=== PATIENT | female | born 1985 | race Caucasian/White ===

== ENCOUNTER 2016-10-29 14:21 | Emergency (ER) | payer BC ==
[2016-10-29 14:46] VITALS: BP 119/70
--- NOTE | 2016-10-29 15:19 | UC ---
Skin Complaint HPI - HPI Summary HPI Summary: stepped on the prongs of a tub drain last night-removed intact from bottom of left foot - History of Current Complaint Chief Complaint: UCLowerExtremity Time Seen by Provider: 10/29/16 14:54 Stated Complaint: PUNCTURE WOUND TO FOOT Hx Obtained From: Patient Hx Last Menstrual Period: Currently menstruating ?: No Onset/Duration: Sudden Onset, Lasting Days - 1, Worse Since - pain and swelling- hurts to ambulate Skin Exposure Onset/Duration: Days Ago - 1 Onset Severity: Mild Current Severity: Moderate Pain Intensity: 7 Pain Scale Used: 0-10 Numeric Location: Discrete - bottom of left foot Aggravating: Other - weight bearing Alleviating: Nothing Associated Signs & Symptoms: Positive: Bruising Related History: Trauma - Allergy/Home Medications Allergies/Adverse Reactions: Allergies Allergy/AdvReac Type Severity Reaction Status Date / Time No Known Allergies Allergy Verified 10/29/16 14:46 Home Medications: Home Medications Nuvaring 10/29/16 [History] Review of Systems Constitutional: Negative Skin: Bruising - bottom of left foot Eyes: Negative ENT: Negative Respiratory: Negative Cardiovascular: Negative Gastrointestinal: Negative Genitourinary: Negative Motor: Negative Neurovascular: Negative Musculoskeletal: Myalgia - bottom of left foot Neurological: Negative Psychological: Negative All Other Systems Reviewed And Are Negative: Yes PMH/Surg Hx/FS Hx/Imm Hx Previously Healthy: Yes Endocrine History Of: Denies: Diabetes, Thyroid Disease Cardiovascular History Of: Denies: Cardiac Disorders, Hypertension Respiratory History Of: Denies: COPD, Asthma GI/ History Of: Denies: Ulcer - Surgical History Surgical History: Yes Surgery Procedure, Year, and Place: Wisdomo teeth - Family History Known Family History: Positive: None - Social History 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 Lives: With Family Alcohol Use: Weekly Substance Use Type: None Smoking Status (MU): Never Smoked Tobacco - Immunization History Most Recent Tetanus Shot: 3 yeaars ago Vaccination Up to Date: Yes Physical Exam Triage Information Reviewed: Yes Appearance: Well-Appearing, No Pain Distress, Well-Nourished Vital Signs: Initial Vital Signs Temp 98.3 F 10/29/16 14:39 Pulse 70 10/29/16 14:39 Resp 18 10/29/16 14:39 BP 119/70 10/29/16 14:39 Pulse Ox 99 10/29/16 14:39 Vital Signs Reviewed: Yes Eye Exam: Normal Eyes: Positive: Conjunctiva Clear ENT Exam: Normal ENT: Positive: Normal ENT inspection, Hearing grossly normal. Negative: Nasal congestion, Nasal drainage, Trismus, Muffled/hoarse voice Neck exam: Normal Neck: Positive: Supple, Nontender, No Lymphadenopathy Respiratory Exam: Normal Respiratory: Positive: Chest non-tender, No respiratory distress, No accessory muscle use Cardiovascular Exam: Normal Cardiovascular: Positive: RRR, Pulses Normal, Brisk Capillary Refill Musculoskeletal Exam: Other Musculoskeletal: Positive: Strength Intact, ROM Intact, Edema @ - bottom of left foot Neurological Exam: Normal Neurological: Positive: Alert, Muscle Tone Normal Psychological Exam: Normal Skin: Positive: breakdown - 3 pw to left foot Course/Dx - Course Course Of Treatment: weightbearing as tolerated, warm soaks , dressing, wound care - Differential Diagnoses - Skin Complaint Differential Diagnoses: Cellulitis, Foreign Body, Local Allergic Reaction - Diagnoses Provider Diagnoses: 3 punture wounds to left foot Discharge - Discharge Plan Condition: Stable Disposition: HOME Prescriptions: Cephalexin CAP* [Keflex CAP*] 500 mg PO QID #20 cap Patient Education Materials: Foot Contusion (ED), Puncture Wound (ED), Crutch Instructions (ED) Referrals: No Primary Care Phys,NOPCP [Primary Care Provider] - [facility] [place] [facility]IAN REFERRAL [Outside] - If Needed Additional Instructions: 1. soak foot 2-3 times a day for 20 minutes in warm soapy water 2. keep dressing and clean sock on foot when in shoe 3.may leave dressing off overnight
== END 2016-10-29 15:30 | disposition home or self-care (01) ==
LOC: UCEAST 14:21
DX: S91.332A Puncture wound without foreign body, left foot, initial encounter (principal); W22.8XXA Striking against or struck by other objects, initial encounter; Y93.9 Activity, unspecified; Y92.9 Unspecified place or not applicable
CPT/HCPCS: 99213; G0463

== ENCOUNTER 2017-11-09 13:20 | Inpatient (IN) | payer BC, OTHER ==
[2017-11-09 13:47] LABS: ABS Basophils 0.1 10^3/ul (0-0.2); ABS Eosinophils 0 10^3/ul (0-0.6); ABS Lymphocytes 1.8 10^3/ul (1.0-4.8); ABS Monocytes 0.4 10^3/ul (0-0.8); ABS Neutrophils 4.2 10^3/ul (1.5-7.7); ABS Nucleated RBC 0 10^3/ul; Eosinophil % 0.2 % (0-6); Hematocrit 39 % (35-47); Hemoglobin 13.6 g/dl (12.0-16.0); Lymphocyte % 28.5 % (25-47); Mean Corpuscular HGB Conc 35 g/dl (31-36); Mean Corpuscular Hemoglobin 31 pg (27-31); Mean Corpuscular Volume 89 fL (80-97); Mean Platelet Volume 9 um3 (7.4-10.4); Nucleated Red Blood Cells % 0.1; Platelet Count 299 10^3/ul (150-450); Red Blood Count 4.38 10^6/ul (4.0-5.4); Red Cell Distribution Width 12 % (10.5-15); White Blood Count 6.5 10^3/ul (3.5-10.8)
[2017-11-09 14:12] LABS: EGFR Non-African American 97.3 (>60)
[2017-11-09 14:21] LABS: Urine Appearance Clear; Urine Blood Negative (Negative); Urine Color Straw; Urine Ketones Negative (Negative); Urine Protein Negative (Negative); Urine Specific Gravity 1.005 (1.010-1.030); Urine Urobilinogen Negative (Negative)
[2017-11-09] MEDS ORDERED: Ibuprofen TAB* 800 MG PO ONE (17:17)
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
[2017-11-09] MEDS ORDERED: Al Hydrox/Mg Hydrox/Simet LIQ* 30 ML UDC PO PRN (22:05)
[2017-11-09] MEDS: DULoxetine DR CAP* 20 MG CAP.DR PO SCH ×2 (22:20→23:45)
[2017-11-09] MEDS: Acetaminophen TAB* 325 MG PO PRN (23:45)
[2017-11-10] MEDS: Vitamin THERAPEUTIC TAB PO SCH (09:21)
[2017-11-10] MEDS: Acetaminophen TAB* 325 MG PO PRN (09:24)
[2017-11-10] MEDS: cloNIDine TAB* 0.1 MG PO SCH ×2 (12:35→21:14)
[2017-11-10] MEDS ORDERED: LORazepam TAB(*) 1 MG PO ONE (19:13)
[2017-11-10] MEDS ORDERED: Temazepam CAP* 15 MG PO PRN (19:18)
[2017-11-10] MEDS ORDERED: Nicotine GUM* 2 MG PO PRN (19:19)
[2017-11-10] MEDS ORDERED: LORazepam TAB(*) 1 MG PO PRN (19:19)
[2017-11-10] MEDS ORDERED: Nicotine Inhaler* 10 MG AMP INH PRN (19:20)
[2017-11-10] MEDS ORDERED: Mouth Piece, Nicotine* 1 EACH CARTRIDGE INH ONE (19:20)
[2017-11-10] MEDS ORDERED: QUEtiapine TAB* 25 MG PO SCH (21:00)
[2017-11-10] MEDS: DULoxetine DR CAP* 20 MG CAP.DR PO SCH (21:14)
[2017-11-11 08:30] VITALS: BP 105/72
[2017-11-11] MEDS: Vitamin THERAPEUTIC TAB PO SCH (09:44)
[2017-11-11] MEDS: cloNIDine TAB* 0.1 MG PO SCH (09:45)
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
== END 2017-11-11 14:35 | disposition home or self-care (01) | DRG 755 ==
LOC: ED 13:20 → BSU 20:02
PROVIDERS: ADMIT Psychiatry & Neurology Psychiatry; ATTEND Psychiatry & Neurology Psychiatry
DX: F43.10 Post-traumatic stress disorder, unspecified (principal); R45.851 Suicidal ideations; F32.9 Major depressive disorder, single episode, unspecified; F60.3 Borderline personality disorder
CPT/HCPCS: 36415; 80053; 80061; 80307; 80320; 80329; 81003; 83036; 84443; 85025; 99238; 99283; A9270-GY; G0480

== ENCOUNTER 2018-01-20 19:36 | Emergency (ER) | payer BC, OTHER ==
[2018-01-20 19:53] VITALS: BP 122/82
[2018-01-20] MEDS ORDERED: Ibuprofen TAB* 600 MG PO ONE (20:30)
--- NOTE | 2018-01-20 21:39 | UC ---
Luis Bautista Rebecca, scribed for Adrián Nj MD on 01/20/18 at 2028 . Respiratory Complaint HPI - HPI Summary HPI Summary: Pt is a 32 y/o F who presents to [facility] c/o feeling ill for multiple days. Pt reports that on Thursday (4 days ago) she began having a "tickle in my throat" then on Thursday her throat began to hurt. Thursday (2 days ago) is when her symptoms became worse and she began experiencing rhinorrhea, YOUNG, "burning" eyes , stabbing pleuritic CP, nonproductive cough, fatigue, myalgias, subjective fever and chills. YOUNG is currently moderate, ranked 5/10. Reports she has been resting which has not improved symptoms. 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 Denies abdominal pain. Negative PMHx Mononucleosis. - History of Current Complaint Chief Complaint: UCRespiratory Stated Complaint: COUGH,FLU-LIKE SYMPTOMS Time Seen by Provider: 01/20/18 20:23 Hx Obtained From: Patient Hx Last Menstrual Period: [id number] Onset/Duration: Still Present, Worse Since - 2 days ago Severity Currently: Moderate Pain Intensity: 5 Pain Scale Used: 0-10 Numeric Character: Cough: Nonproductive Aggravating Factors: Nothing Alleviating Factors: Nothing Associated Signs And Symptoms: Positive: Fever, Chills, Pleuritic Chest Pain - Allergies/Home Medications Allergies/Adverse Reactions: Allergies Allergy/AdvReac Type Severity Reaction Status Date / Time No Known Allergies Allergy Verified 01/20/18 19:53 Home Medications: Home Medications DULoxetine CAP* [Cymbalta CAP*] 60 mg PO BEDTIME 01/20/18 [History Confirmed 01/20/18] PMH/Surg Hx/FS Hx/Imm Hx - Additional Past Medical History Additional PMH: NEGATIVE PMHx: Mononucleosis, HTN, DM Psychological History: Post Traumatic Stress Disorder - Surgical History Surgical History: Yes Surgery Procedure, Year, and Place: [place] teeth - Family History Known Family History: Negative: Cardiac Disease, Hypertension, Diabetes - Social History Alcohol Use: Weekly Alcohol Amount: binge drinking Substance Use Type: None Smoking Status (MU): Never Smoked Tobacco Have You Smoked in the Last Year: No - Immunization History Most Recent Tetanus Shot: 3 yeaars ago Vaccination Up to Date: Yes Review of Systems Constitutional: Fever, Chills, Fatigue Skin: Negative Eyes: Other - Burning eye pain ENT: Sore Throat, Nasal Discharge, Other - "tickle in throat" Respiratory: Cough Cardiovascular: Chest Pain - pleuritic Gastrointestinal: Negative Genitourinary: Negative Motor: Negative Neurovascular: Negative Musculoskeletal: Myalgia Neurological: Headache Psychological: Negative All Other Systems Reviewed And Are Negative: Yes - Comments Additional Review of Systems Comments: NEGATIVE: Abdominal pain Physical Exam - Summary Physical Exam Summary: General: mildly ill-appearing, no pain distress Skin: warm, color reflects adequate perfusion, dry Head: normal Eyes: EOMI, NANCY ENT: positive rhinorrhea, posterior pharynx is erythematous, positive cervical lymphadenopathy Neck: supple, nontender Respiratory: CTA, breath sounds present Cardiovascular: RRR Abdomen: soft, nontender Bowel: present Musculoskeletal: normal, strength/ROM intact Neurological: sensory/motor intact, A&O x3 Psychological: affect/mood appropriate Triage Information Reviewed: Yes Vital Signs: Initial Vital Signs Temp 98.9 F 01/20/18 19:47 Pulse 90 01/20/18 19:47 Resp 16 01/20/18 19:47 BP 122/82 01/20/18 19:47 Pulse Ox 100 01/20/18 19:47 Vital Signs Reviewed: Yes UC Diagnostic Evaluation - Laboratory O2 Sat by Pulse Oximetry: 100 Re-Evaluation - Re-Evaluation First Eval Re-Evaluation Time: 21:28 Comment: Discussed results with the pt. Respiratory Course/Dx - Course Course Of Treatment: WITH SX BEING APPROX 7 DAYS DURATION DISCUSSED SX TREATMENT AND USE OF ABX. AT THIS TIME, SX TREATMENT. ABX RX SENT TO BE FILLED IF SX CONTINUE FOR A TOTAL OF 10 DAYS. - Differential Dx/Diagnosis Provider Diagnoses: SINUSITIS Discharge - Sign-Out/Discharge Documenting (check all that apply): Discharge/Admit/Transfer - Discharge - Discharge Plan Condition: Stable Disposition: HOME Prescriptions: Amoxicillin/Clavulanate TAB* [Augmentin TAB 875*] 875 mg PO BID #20 tab Patient Education Materials: Sinusitis (ED) Forms: *Work Release Referrals: Kell Kirby MD [Primary Care Provider] - - Billing Disposition and Condition Condition: STABLE Disposition: HOME The documentation as recorded by the Luis carroll Rebecca accurately reflects the service I personally performed and the decisions made by me, Adrián Nj MD.
== END 2018-01-20 21:35 | disposition home or self-care (01) ==
LOC: UCEAST 19:36
DX: J32.9 Chronic sinusitis, unspecified (principal)
CPT/HCPCS: 87502; 87651; 99212; A9270-GY; G0463

== ENCOUNTER 2018-11-21 11:24 | Emergency (ER) | payer OTHER ==
--- NOTE | 2018-11-21 11:32 | ED ---
Psychiatric Complaint - HPI Summary HPI Summary: A 32 y/o F brought in by police and ambulance presents to ED for MHE due to erratic behavior [employer] approx 1030. Per EMS: When EMS arrived on scene, police were present, and patient was in her driveway agitated and uncooperative. She had thrown things, removed her jewelry and some clothes. She calmed down en route to ED. She denies alcohol but had smoked marijuana. Patient was upset because "her left her today" for a job interview in [place]. She is concerned about the safety of her Great Nasim. Medications reviewed. She states her healed scars on her UE are from self-injury (george) and the healing bruises on UE are from her dog. - History Of Current Complaint Hx Obtained From: Patient, EMS Hx Last Menstrual Period: 12/23/17 ?: No - denies at bedside Onset/Duration: Still Present Timing: Constant Severity Initially: Severe Severity Currently: Mild Aggravating Factor(s): Recent Stress, Drug Use - marijuana Related History: Positive For: Prior Psychiatric Issues - Allergies/Home Medications Allergies/Adverse Reactions: Allergies Allergy/AdvReac Type Severity Reaction Status Date / Time No Known Allergies Allergy Verified 01/20/18 19:53 Home Medications: Home Medications ALPRAZolam TAB* [Xanax TAB*] 0.25 mg PO SEE INSTRUCTIONS PRN 11/21/18 [History Confirmed 11/21/18] Pnv No.95/Ferrous Fum/Folic AC [ Caplet] 1 each PO DAILY 11/21/18 [ History Confirmed 11/21/18] traZODone TAB* [Desyrel TAB*] 50 mg PO BEDTIME 11/21/18 [History Confirmed 11/21] PMH/Surg Hx/FS Hx/Imm Hx Previously Healthy: No Endocrine/Hematology History: Denies: Hx Diabetes, Hx Thyroid Disease Cardiovascular History: Denies: Hx Hypertension Respiratory History: Denies: Hx Asthma, Hx Chronic Obstructive Pulmonary Disease (COPD) GI History: Denies: Hx Ulcer Psychiatric History: Reports: Hx Eating Disorder - anorexia, Hx Depression, Hx Suicide Attempt, Hx of Violent Episodes Against Others, Hx Substance Abuse, Other Psychiatric Issues/Disorders - borderline personality disorder - Surgical History Surgery Procedure, Year, and Place: [place] teeth Infectious Disease History: Denies: Hx Hepatitis, Hx Human Immunodeficiency Virus (HIV), History Other Infectious Disease - Family History Known Family History: Negative: Cardiac Disease, Hypertension, Diabetes - Social History Occupation: Employed Full-time Lives: With Family Alcohol Use: Weekly Alcohol Amount: binge drinking Hx Substance Use: No Substance Use Type: Reports: None Hx Tobacco Use: No Smoking Status (MU): Never Smoked Tobacco Have You Smoked in the Last Year: No Review of Systems Negative: Cough Positive: Bruising - UE Psychological: Other - pos: manic, erratic behavior All Other Systems Reviewed And Are Negative: Yes Physical Exam - Summary Physical Exam Summary: Appearance: The patient is well-nourished in no acute distress and in no acute pain. Skin: The skin is warm and dry and skin color reflects adequate perfusion. There are healed scars on bilateral UE. There are healing bruises on bilateral forearms. HEENT: The head is normocephalic and atraumatic. The pupils are equal and reactive. The conjunctivae are clear and without drainage. Nares are patent and without drainage. Mouth reveals moist mucous membranes and the throat is without erythema and exudate. The external ears are intact. The ear canals are patent and without drainage. The tympanic membranes are intact. Neck: the neck is supple with full range of motion and non-tender. There are no carotid bruits. There is no neck vein distension. Respiratory: Chest is non-tender. Lungs are clear to auscultation and breath sounds are symmetrical and equal. Cardiovascular: Heart is regular rate and rhythm. There is no murmur or rub auscultated. There is no peripheral edema and pulses are symmetrical and equal. Abdomen: The abdomen is soft and non-tender. There are normal bowel sounds heard in all four quadrants and there is no organomegaly palpated. Musculoskeletal: There is no back tenderness noted. Extremities are non-tender with full range of motion. There is good capillary refill. There is no peripheral edema or calf tenderness elicited. Neurological: Patient is alert and oriented to person, place and time. The patient has symmetrical motor strength in all four extremities. Cranial nerves are grossly intact. Deep tendon reflexes are symmetrical and equal in all four extremities. Psychiatric: Manic, some pressure speech, circumferential speech pattern. Triage Information Reviewed: Yes Vital Signs Reviewed: Yes Diagnostics - Laboratory Result Diagrams: 11/21/18 12:00 11/21/18 12:00 Lab Statement: Any lab studies that have been ordered have been reviewed, and results considered in the medical decision making process. Course/Dx - Course Course Of Treatment: Patient is medically cleared for MHE at 1330. Per horse show judge: Dr. Delarosa, psych, approves patient for discharge tonight. Dx: Substance use disorder. - Differential Dx/Clinical Impression Provider Diagnosis: Substance use disorder Discharge - Sign-Out/Discharge Documenting (check all that apply): Patient Departure - DC Patient Received Moderate/Deep Sedation with Procedure: No - Discharge Plan Condition: Stable Disposition: HOME Patient Education Materials: Depression (ED), Suicide Prevention (ED) Referrals: [facility] [Outside] (Follow up as soon as possible) Kell Kirby MD [Primary Care Provider] - - Billing Disposition and Condition Condition: STABLE Disposition: Home - Attestation Statements Document Initiated by Scribe: Yes Documenting Scribe: Bon Pelayo Provider For Whom Scribe is Documenting (Include Credential): Dr. Guero Cantu MD Scribe Attestation: Bon Bautista, scribed for Dr. Guero Cantu MD on 11/21/18 at 2143. Scribe Documentation Reviewed: Yes Provider Attestation: The documentation as recorded by the Bon carroll accurately reflects the service I personally performed and the decisions made by , Dr. Guero Cantu MD Status of Scribe Document: Viewed
[2018-11-21] MEDS ORDERED: LORazepam TAB(*) 1 MG PO PRN (11:46)
[2018-11-21] MEDS ORDERED: Nicotine Inhaler* 10 MG AMP INH PRN (11:46)
[2018-11-21 12:13] LABS: ABS Basophils 0 10^3/ul (0-0.2); ABS Eosinophils 0 10^3/ul (0-0.6); ABS Lymphocytes 0.9 10^3/ul (1.0-4.8); ABS Monocytes 0.3 10^3/ul (0-0.8); ABS Neutrophils 3.9 10^3/ul (1.5-7.7); ABS Nucleated RBC 0 10^3/ul; Eosinophil % 0.1 %; Hematocrit 34 % (33-41); Lymphocyte % 17.9 %; Mean Corpuscular HGB Conc 35 g/dL (31-36); Mean Corpuscular Hemoglobin 31 pg (27-31); Mean Corpuscular Volume 90 fL (80-97); Mean Platelet Volume 8.9 fL (7.4-10.4); Nucleated Red Blood Cells % 0.1; Platelet Count 272 10^3/uL (150-450); Red Blood Count 3.83 10^6 /uL (3.70-4.87); Red Cell Distribution Width 12 % (10.5-15); White Blood Count 5.1 10^3/uL (3.5-10.8)
[2018-11-21 12:32] LABS: ALT 29 U/L (7-52); AST 31 U/L (13-39); Albumin 5.2 g/dL (3.2-5.2); Albumin/Globulin Ratio 2.3 (1-3); Alkaline Phosphatase 55 U/L (34-104); Anion Gap 7 mmol/L (2-11); BUN/Creatinine Ratio 7.2 (8-20); Blood Urea Nitrogen 5 mg/dL (6-24); CO2 Carbon Dioxide 26 mmol/L (22-32); Calcium 9.9 mg/dL (8.6-10.3); Chloride 99 mmol/L (101-111); EGFR African American 120.9 (>60); EGFR Non-African American 99.9 (>60); Globulin 2.3 g/dL (2-4); Glucose 148 mg/dL (70-100); Potassium 3.4 mmol/L (3.5-5.0); Sodium 132 mmol/L (135-145); Total Protein 7.5 g/dL (6.4-8.9)
[2018-11-21 12:39] LABS: HCG Pregnancy < 0.60 mIU/mL
[2018-11-21 12:55] LABS: Urine Appearance Clear; Urine Bilirubin Negative (Negative); Urine Blood Negative (Negative); Urine Color Colorless; Urine Glucose Negative (Negative); Urine Ketones Negative (Negative); Urine Nitrite Negative (Negative); Urine Protein Negative (Negative); Urine Specific Gravity 1.001 (1.010-1.030); Urine Urobilinogen Negative (Negative)
[2018-11-21 12:56] LABS: Barbiturates Urine Screen None Detected (None Detect); Benzodiazepine Urine Screen None Detected (None Detect); Urine Cannabinoids Screen Presumptive Positive (None Detect)
[2018-11-21 13:01] LABS: Acetaminophen < 15 mcg/mL; Alcohol < 10 mg/dL (<10); Salicylate < 2.50 mg/dL (<30)
[2018-11-21 13:17] LABS: TSH (Thyroid Stimulating Horm) 0.46 mcIU/mL (0.34-5.60)
[2018-11-21 22:28] VITALS: BP 120/93
[2018-11-22] MEDS ORDERED: LORazepam INJ* 2 MG/ML 1 ML VIAL ONE (00:18)
== END 2018-11-21 22:27 | disposition home or self-care (01) ==
LOC: ED 11:24
DX: F19.10 Other psychoactive substance abuse, uncomplicated (principal); F32.9 Major depressive disorder, single episode, unspecified
CPT/HCPCS: 36415; 80053; 80307; 80320; 80329; 81003; 84443; 84702; 85025; 99285; A9270-GY; G0480; J2060

== ENCOUNTER 2018-11-21 23:06 | Inpatient (IN) | payer OTHER ==
--- NOTE | 2018-11-21 23:48 | ED ---
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 The patient rates the pain 0/10 in severity. Symptoms aggravated by nothing. Symptoms alleviated by nothing. Patient was discharged a few minutes prior to her arrival. Patient states she is running away from her , and she wants to be arrested. Patient states she does not understand what her psychiatric diagnosis is. - History Of Current Complaint Chief Complaint: EDPsychosocial Time Seen by Provider: 11/21/18 23:25 Hx Last Menstrual Period: 12/23/17 ?: No Onset/Duration: Sudden Onset, Lasting Hours, Still Present Timing: Constant Severity Initially: Mild Severity Currently: Mild Aggravating Factor(s): Nothing Alleviating Factor(s): Nothing Associated Signs And Symptoms: Positive: Confused - Allergies/Home Medications Allergies/Adverse Reactions: Allergies Allergy/AdvReac Type Severity Reaction Status Date / Time No Known Allergies Allergy Verified 11/21/18 23:21 PMH/Surg Hx/FS Hx/Imm Hx Previously Healthy: No Endocrine/Hematology History: Denies: Hx Diabetes, Hx Thyroid Disease Cardiovascular History: Denies: Hx Hypertension Respiratory History: Denies: Hx Asthma, Hx Chronic Obstructive Pulmonary Disease (COPD) GI History: Denies: Hx Ulcer Psychiatric History: Reports: Hx Eating Disorder - anorexia, Hx Depression, Hx Suicide Attempt, Hx of Violent Episodes Against Others, Hx Substance Abuse, Other Psychiatric Issues/Disorders - borderline personality disorder - Surgical History Surgery Procedure, Year, and Place: [place] teeth Infectious Disease History: No Infectious Disease History: Denies: Hx Hepatitis, Hx Human Immunodeficiency Virus (HIV), History Other Infectious Disease, Traveled Outside the [place] in Last 30 Days - Family History Known Family History: Negative: Cardiac Disease, Hypertension, Diabetes - Social History Occupation: Employed Full-time Lives: With Family Alcohol Use: Weekly Alcohol Amount: binge drinking Hx Substance Use: No Substance Use Type: Reports: None Hx Tobacco Use: No Smoking Status (MU): Never Smoked Tobacco Have You Smoked in the Last Year: No Review of Systems Negative: Chest Pain Psychological: Other - Positive unknown type of psychiatric issue All Other Systems Reviewed And Are Negative: Yes Physical Exam - Summary Physical Exam Summary: VITAL SIGNS: Reviewed. GENERAL: Patient is a well-developed and nourished female who is lying comfortable in the stretcher. Patient is not in any acute respiratory distress. HEAD AND FACE: No signs of trauma. No ecchymosis, hematomas or skull depressions. No sinus tenderness. EYES: PERRLA, EOMI x 2, No injected conjunctiva, no nystagmus. EARS: Hearing grossly intact. Ear canals and tympanic membranes are within normal limits. MOUTH: Oropharynx within normal limits. NECK: Supple, trachea is midline, no adenopathy, no JVD, no carotid bruit, no c- spine tenderness, neck with full ROM. CHEST: Symmetric, no tenderness at palpation LUNGS: Clear to auscultation bilaterally. No wheezing or crackles. CVS: Regular rate and rhythm, S1 and S2 present, no murmurs or gallops appreciated. ABDOMEN: Soft, non-tender. No signs of distention. No rebound no guarding, and no masses palpated. Bowel sounds are normal. EXTREMITIES: FROM in all major joints, no edema, no cyanosis or clubbing. NEURO: Alert and oriented x 3. No acute neurological deficits. Speech is normal and follows commands. SKIN: Dry and warm. Patient has old self harm wounds on her upper arms. PSYCH: Patient is compulsive, however she is cooperative. Triage Information Reviewed: Yes Vital Signs On Initial Exam: Initial Vitals Temp Pulse Resp BP Pulse Ox 99.2 F 79 15 112/80 98 11/21/18 23:16 11/21/18 23:16 11/21/18 23:16 11/21/18 23:16 11/21/18 23:16 Vital Signs Reviewed: Yes Diagnostics - Vital Signs Vital Signs Temp Pulse Resp BP Pulse Ox 11/21/18 23:16 99.2 F 79 15 112/80 98 - Laboratory Lab Statement: Any lab studies that have been ordered have been reviewed, and results considered in the medical decision making process. 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 Physical Exam Findings: Patient is compulsive, however she is cooperative. Patient has old self harm wounds on her upper arms. In the ED course the patient was given Haloperidol and lorazepam. Patient will be signed out to Dr. Cronin upon shift change pending evaluation and disposition by psychiatry. The patient is agreeable with this plan. - Differential Dx/Clinical Impression Provider Diagnosis: Borderline personality disorder Discharge - Sign-Out/Discharge Documenting (check all that apply): Sign-Out Patient Signing out patient TO: Brendan Cronin - Upon shift change pending evaluation and dispo by psychiatry - Discharge Plan Condition: Stable Referrals: Kell Kirby MD [Primary Care Provider] - - Attestation Statements Document Initiated by Scribe: Yes Documenting Scribe: Kirti Renner Provider For Whom Scribe is Documenting (Include Credential): Dr. Yary Johnson MD Scribe Attestation: Kirti Bautista, scribed for Dr. Yary Johnson MD on 11/22/18 at 0629. Status of Scribe Document: Ready
[2018-11-22] MEDS ORDERED: Haloperidol INJ IV/IM* 5 MG/ML AMP IM ONE (00:17)
[2018-11-22] MEDS ORDERED: LORazepam INJ* 2 MG/ML 1 ML VIAL IM ONE (00:17)
--- NOTE | 2018-11-22 07:20 | ED ---
Progress - Progress Note Progress Note: This pt was signed out by Dr. Johnson at shift change, pending disposition, awaiting mental health evaluation. Dr. Brooks, psychiatrist, reports pt requires admission, therefore pt will be admitted to [facility]. Re-Evaluation - Re-Evaluation First Eval Re-Evaluation Time: 09:06 Comment: Dr. Brooks, psychiatrist, reports he will come back in 1 hour to interview pt again. She is currently not cooperating. Course/Dx - Diagnoses Provider Diagnoses: Borderline personality disorder Discharge - Sign-Out/Discharge Documenting (check all that apply): Patient Departure - Admit to [facility] Psych, Receiving Sign-Out Receiving patient FROM: Yary Johnson All imaging exams completed and their final reports reviewed: No Studies Patient Received Moderate/Deep Sedation with Procedure: No - Discharge Plan Condition: Stable Disposition: PSYCHIATRIC FACILITY-[facility] - Billing Disposition and Condition Condition: STABLE Disposition: Psychiatric Facility [facility] - Attestation Statements Document Initiated by Scribe: Yes Documenting Scribe: Meron Yarbrough Provider For Whom Georgi is Documenting (Include Credential): Brendan Cronin MD Scribe Attestation: Meron Bautista, scribed for Brendan Cronin MD on 11/22/18 at 1855. Scribe Documentation Reviewed: Yes Provider Attestation: The documentation as recorded by the Meron carroll accurately reflects the service I personally performed and the decisions made by me, Brendan Cronin MD Status of Scribe Document: Viewed
[2018-11-22] MEDS ORDERED: Al Hydrox/Mg Hydrox/Simet LIQ* 30 ML UDC PO PRN (12:03)
[2018-11-22] MEDS ORDERED: Acetaminophen TAB* 325 MG PO PRN (12:03)
[2018-11-22] MEDS ORDERED: hydrOXYzine HCL TAB* 50 MG PO PRN (12:04)
[2018-11-22] MEDS ORDERED: traZODone TAB* 50 MG TAB PO SCH (21:00)
[2018-11-22] MEDS ORDERED: DULoxetine DR CAP* 20 MG CAP.DR PO SCH (21:00)
[2018-11-23 07:37] LABS: HDL Cholesterol 117.7 mg/dL
[2018-11-23] MEDS ORDERED: cloNIDine TAB* 0.1 MG PO SCH (09:00)
[2018-11-23] MEDS ORDERED: traZODone TAB* 50 MG TAB PO PRN (16:35)
[2018-11-23] MEDS ORDERED: DULoxetine DR CAP* 20 MG CAP.DR PO SCH (21:00)
[2018-11-23] MEDS: LORazepam TAB(*) 1 MG PO PRN (22:35)
--- NOTE | 2018-11-23 23:01 | HP ---
HISTORY AND PHYSICAL: DATE OF ADMISSION: 11/22/18 PROVIDER: Paige Rashid NP SUPERVISING PHYSICIAN: Karl Brooks MD* (dictated by Paige Rashid NP). JUSTIFICATION FOR ADMISSION: The patient is in need of 24-hour supervision and care secondary to disorganization. CHIEF COMPLAINT: "I feel confused about my diagnosis." HISTORY OF PRESENT ILLNESS: Polly is a 32-year-old white female with history of one previous hospitalization 1 year ago with a diagnosis of major depressive disorder and borderline personality disorder, who was brought in by law enforcement on a 9.41 the moment after being discharged from the ED from a momentarily earlier presentation. This time she was admitted to the unit on a 9.39 status reporting to have "new knowledge about herself." Polly states that "smoking marijuana" brought out other personalities; stating she does not feel safe going back home to her , her dog, or her house, stating she is fearful of being attacked, raped, of home invasion, or any number of other possibilities. Polly reports feeling"terrified," stating she became fearful after smoking marijuana and losing touch with reality. Polly reports decreased sleep. States she does not eat well and has been on medical leave from work for the past 3 weeks. Polly was insistent that she have a skin examination as she states she was bitten by her dog and was fearful that her dog would do this to someone else and will eventually have to be euthanized. Polly was strangely uninhibited about disrobing in front of staff. Describing the bruising is difficult as the bruises do not appear as I would expect bruises from a dog to look. Polly is mildly psychotic, reporting that she fears she is "losing touch with reality." She appears to have confused memories. PAST PSYCHIATRIC HISTORY: Polly has 1 previous admission in October 2017. Her outpatient treatment team includes Dr. Kylie Dalton and Dr. Kirby. She has been prescribed 0.1 mg of clonidine at bedtime, 60 mg of Cymbalta at bedtime, 50 mg to 150 mg of trazodone at bedtime, vitamin, although she is not trying to get she wants the iron present in that vitamin, B12 vitamin and for panic 0.25 mg of Xanax. PAST MEDICAL HISTORY: Polly is quite unwilling to discuss these things, although she does states that she has not had much sleep and that she is allergic to P[place]APP[place]. FAMILY HISTORY: Polly is largely unwilling to states this saying that her family is high powered in the and they are not permitted to be mentally ill. Nevertheless, she did reveal that there is anxiety, alcoholism, depression, schizophrenia, and hoarding disorders on her mother's side of the family. She was slightly paranoid about that information being disclosed to anyone else. SUBSTANCE ABUSE: She is not using any substances other than marijuana. There is a question whether that marijuana was laced with something else that was psychoactive. SOCIAL HISTORY: She was born "in the [facility] She lived with both of her parents. She is describes an emotional neglect. She had no siblings. She is highly educated. 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 She said it is her dream job, although she is on leave for 3 weeks for medical reason. She is and has a dog who is knew to the family and very concerning. REVIEW OF SYSTEMS: The patient reports feeling alert and oriented. She denies shortness of breath, heat or cold intolerance, chest pain or abdominal pain. She denies neurological symptoms, although she does close her eyes and annabel her head seeming to enjoy that sensation. She denies fevers or changes of weight. PHYSICAL EXAMINATION VITAL SIGNS: On 11/23/18 at 0830 in the morning, temperature is 98.3, pulse 145 , respirations 18, O2 sat 100, blood pressure 117/62. The day before at 1622, her pulse was only 98 and that is not as concerning as it could be. For further exam data, please see the emergency department record which reflects a woman who is struggling to maintain her composure. LABORATORY DATA: There are few abnormalities, one is that her absolute lymphocyte is low at 0.9, her sodium is low at 132, potassium low at 3.4, chloride low at 99, BUN low at 5, BUN and creatinine ratio is low at 7.2. Glucose was high at 148 but it is not clear when she last ate. Urine specific gravity is low at 1.001. Toxicology shows a positive for cannabinoids and there is no influenza noted but that was a year ago. MENTAL STATUS EXAM: Polly is a 32-year-old slim, somewhat disheveled appearing female who looks younger than her stated age. She presents as dysphoric with congruent affect. She is alert and oriented to person, place, and time. Her speech is rapid, but has normal tone. She is quite intelligent with good insight and poor judgment. At times, it is difficult to follow her train of thought. Polly is pleasant and cooperative with examination. She denies any thoughts of suicide or homicide. She is preoccupied with bruises on her arms, back, and breasts. DIAGNOSES: Cecil I: Psychosis, not otherwise specified, posttraumatic stress disorder, major depressive disorder, anxiety disorder, borderline personality disorder, bruising to the right arm, there are 4 to 5 of those bruises on the left arm that are a little more than 3. She has bruises on her right breast and on her right and left legs. IMPRESSION: Polly is a distressed woman who is seeming to be slightly psychotic , who could use time to sleep and rest to return to baseline functioning. PLAN: The patient is admitted to adult behavioral health unit and placed on q.15 minute checks for her own safety. She is encouraged to participate in supportive milieu, individual and group therapies. We will obtain an MMPI for diagnostic clarification. We will titrate medications to efficacy including lowering them at her request and monitor for mood and thought content. Discharge planning will include family involvement and outpatient providers. PAIGE RASHID, PHILLY [id number]/CPS #: [id number] REGINE
[2018-11-24 09:41] VITALS: BP 100/57
--- NOTE | 2018-11-24 14:35 | PN ---
Subjective - Subjective Date of Service: 11/24/18 Service Type: [id number] Hosp care 25 min moderate complexity Subjective: Chanell is more collected than she was yesterday, but she still has some odd behaviors, such as closing her eyes and rocking while I am talking and asking if she can lay down and close her eyes while we are having a conversation. We discuss that she has been chastened at work for using "unprofessional" language. She also discusses that she has been feeling like her diagnosis doesn' t match her behaviors. She discusses some impulsive activities, such as getting a dog and buying a house. We discuss the possibility that she has bipolar disorder and both are curious if the MMPI bears out this concern. Objective - General Observations Appearance: Disheveled Appears Stated Age: No - younger Stature: Short Posture: WNL Eye Contact: Intermittent Behavior/Activity: Peculiar - Interaction Observations Attitude Towards Examiner: Cooperative Stated Mood: Silly Affect: Incongruent Speech Pattern/Tone: Clear Thought Process: Coherent, Loose Associations, Racing Perception: WNL Thought Content: WNL, Grandiose Hallucination Type: None Delusion Type: None - Cognitive Function Orientation: A&O x 4 Level of Consciousness: Awake, Alert Cognition: WNL, Impaired Attention/Concentration Estimated Intelligence: Above Normal Insight: WNL Judgment Within Normal Limits: Yes Ability to Make Reasonable Decisions: Moderately Impaired - Medication Compliance Cooperative with Inpatient Medication Regimen: Yes - Group Participation Participates in Group Activities: Partial Assessment - Assessment Merits Inpatient Hospitalization: For Immediate Safety Clinical Impression: 32-year-old white woman who comes in after an episode with police and two ED visits who is disorganized and odd in behavior, making impulsive decisions. Plan - Plan Treatment Plan: Name: CHANELL MANCILLA Birthdate: 1985 [id number] Stop Cymbalta Stop trazodone Continue Ativan 1 mg Investigate MMPI results regarding hypomania and psychosis. Continued Medication Management: Different Medication Medications: Current Medications Acetaminophen (Tylenol Tab*) 650 mg PO Q4H PRN PRN Reason: for pain; or Temp >101 F Al Hydrox/Mg Hydrox/Simethicone (Maalox Plus*) 30 ml PO Q4H PRN PRN Reason: INDIGESTION Hydroxyzine HCl (Atarax Tab*) 50 mg PO Q6H PRN PRN Reason: anxiety/insomnia Lorazepam (Ativan Tab(*)) 1 mg PO BEDTIME PRN PRN Reason: INSOMNIA Last Admin: 11/23/18 22:35 Dose: 1 mg
[2018-11-24] MEDS: LORazepam TAB(*) 1 MG PO PRN (20:53)
[2018-11-25] MEDS: hydrOXYzine HCL TAB* 50 MG PO PRN ×2 (00:23→21:03)
--- NOTE | 2018-11-25 14:38 | PN ---
Subjective - Subjective Date of Service: 11/25/18 Service Type: [id number] Hosp care 25 min moderate complexity Subjective: Chanell is more subdued today than she was yesterday. She reports she finished the MMPI the first day she was given it, although the resulting answer sheet has gone missing. In any case, she is neither manic nor psychotic at this time. She does continue to lack insight and judgment at this time, however. We discussed the likely possibility that she has bipolar disorder in addition to borderline personality disorder. She acknowledges that it is a good fit and the fact that she bought a house almost immediately after last year's discharge and recently (a week ago) she got a dog that she could not manage and stayed up for five nights in a row to try to deal with it. Objective - General Observations Appearance: Neat Appears Stated Age: No - younger Stature: WNL Posture: WNL Eye Contact: Average Behavior/Activity: WNL - Interaction Observations Attitude Towards Examiner: Cooperative, Demanding Stated Mood: Dysphoric Affect: Restricted Speech Pattern/Tone: Clear, Appropriate, Normal Volume Thought Process: Coherent Perception: WNL Thought Content: WNL, Depressive Hallucination Type: None Delusion Type: None - Cognitive Function Orientation: A&O x 4 Level of Consciousness: Awake, Alert, Appropriate Cognition: WNL Estimated Intelligence: Above Normal Insight: WNL Judgment Within Normal Limits: Yes Ability to Make Reasonable Decisions: Moderately Impaired - Medication Compliance Cooperative with Inpatient Medication Regimen: Yes - Group Participation Participates in Group Activities: No Assessment - Assessment Merits Inpatient Hospitalization: For Immediate Safety Clinical Impression: 32-year-old white woman who comes in after an episode with police and two ED visits who is disorganized and odd in behavior, making impulsive decisions. Plan - Plan Treatment Plan: Name: CHANELL MANCILLA Birthdate: 1985 [id number] Stop Cymbalta Stop trazodone Continue Ativan 1 mg Investigate MMPI results regarding hypomania and psychosis. Continue medications, add lithium 150 BID today and tomorrow. Medications: Current Medications Acetaminophen (Tylenol Tab*) 650 mg PO Q4H PRN PRN Reason: for pain; or Temp >101 F Al Hydrox/Mg Hydrox/Simethicone (Maalox Plus*) 30 ml PO Q4H PRN PRN Reason: INDIGESTION Hydroxyzine HCl (Atarax Tab*) 50 mg PO Q6H PRN PRN Reason: anxiety/insomnia Last Admin: 11/25/18 00:23 Dose: 50 mg Lorazepam (Ativan Tab(*)) 1 mg PO BEDTIME PRN PRN Reason: INSOMNIA Last Admin: 11/24/18 20:53 Dose: 1 mg - Discharge Plan Discharge Plan: Outpatient Follow Up Outpatient Program: [facility] [place]
[2018-11-25] MEDS: Lithium Carbonate CAP 150 MG ** CAPSULE PO SCH (21:02)
[2018-11-25] MEDS: LORazepam TAB(*) 1 MG PO PRN (21:03)
[2018-11-26] MEDS: Lithium Carbonate CAP 150 MG ** CAPSULE PO SCH (09:00)
[2018-11-26] MEDS ORDERED: Lithium Carbonate CAP 150 MG ** CAPSULE PO ONE (10:52)
[2018-11-26] MEDS ORDERED: Lithium Carbonate CAP 150 MG ** CAPSULE PO SCH (21:00)
[2018-11-27] MEDS ORDERED: Lithium Carbonate CAP 150 MG ** CAPSULE PO SCH (09:00)
== END 2018-11-26 15:52 | disposition home or self-care (01) | DRG 751 ==
LOC: ED 23:06 → BSU 11-22 12:03
PROVIDERS: ADMIT Psychiatry & Neurology Psychiatry; ATTEND Psychiatry & Neurology Psychiatry
DX: F29 Unspecified psychosis not due to a substance or known physiological condition (principal); F60.3 Borderline personality disorder; F50.9 Eating disorder, unspecified; F30.8 Other manic episodes; F43.10 Post-traumatic stress disorder, unspecified; F41.9 Anxiety disorder, unspecified; S40.021A Contusion of right upper arm, initial encounter; S20.01XA Contusion of right breast, initial encounter; S80.12XA Contusion of left lower leg, initial encounter; S80.11XA Contusion of right lower leg, initial encounter; X78.9XXA Intentional self-harm by unspecified sharp object, initial encounter; Y92.009 Unspecified place in unspecified non-institutional (private) residence as the place of occurrence of the external cause; Z91.5 Personal history of self-harm; Z81.1 Family history of alcohol abuse and dependence; Z68.20 Body mass index [BMI] 20.0-20.9, adult; Z72.89 Other problems related to lifestyle; Z81.8 Family history of other mental and behavioral disorders
CPT/HCPCS: 36415; 80061; 83036; 99222; 99232; 99238; 99284; A9270-GY; J1630; J2060

== ENCOUNTER 2018-11-29 21:11 | Emergency (ER) | payer BC, OTHER ==
[2018-11-29] MEDS ORDERED: Nicotine Inhaler* 10 MG AMP INH PRN (21:53)
[2018-11-29] MEDS ORDERED: Haloperidol TAB* 5 MG PO ONE (21:53)
[2018-11-29] MEDS ORDERED: LORazepam INJ* 2 MG/ML 1 ML VIAL ONE ×2 (21:53→21:58)
[2018-11-29] MEDS ORDERED: LORazepam INJ* 2 MG/ML 1 ML VIAL IM ONE (21:54)
[2018-11-29] MEDS ORDERED: Haloperidol INJ IV/IM* 5 MG/ML AMP ONE (21:58)
--- NOTE | 2018-11-29 22:03 | ED ---
HPI Cardiac - HPI Summary HPI Summary: Pt is a 32 y/o F presenting to the ED with a chief complaint of heart palpitations. She states she woke up this morning, smoked some weed in preparation to see her dog, and then her heart felt weird and she started to worry. She also reports right flank pain. - History of Current Complaint Chief Complaint: EDGeneral Stated Complaint: COLD,HEART IS RACING, PAIN IN SIDE PER PT Time Seen by Provider: 11/29/18 21:34 Hx Obtained From: Patient Hx Last Menstrual Period: 12/23/17 Onset/Duration: Started Hours Ago, Still Present Timing: Constant, Lasting Hours Initial Severity: Mild Current Severity: None Pain Intensity: 0 Pain Scale Used: 0-10 Numeric Chest Pain Location: Diffuse Character: Heaviness, Irregular Aggravating Factor(s): Other: - marijuana use Alleviating Factor(s): Nothing Associated Signs and Symptoms: Positive: Palpitations, Other: - R flank pain - Additional Pertinent History Primary Care Physician: NÉSTOR - Allergy/Home Medications Allergies/Adverse Reactions: Allergies Allergy/AdvReac Type Severity Reaction Status Date / Time No Known Allergies Allergy Verified 11/29/18 21:24 PMH/Surg Hx/FS Hx/Imm Hx Previously Healthy: No Endocrine/Hematology History: Denies: Hx Diabetes, Hx Thyroid Disease Cardiovascular History: Denies: Hx Hypertension Respiratory History: Denies: Hx Asthma, Hx Chronic Obstructive Pulmonary Disease (COPD) GI History: Denies: Hx Ulcer Sensory History: Denies: Hx Contacts or Glasses, Hx Hearing Aid Opthamlomology History: Denies: Hx Contacts or Glasses Psychiatric History: Reports: Hx Eating Disorder - anorexia, Hx Depression, Hx Post Traumatic Stress Disorder, Hx Community Mental Health Tx, Hx Suicide Attempt, Hx of Violent Episodes Against Others, Hx Substance Abuse, Other Psychiatric Issues/Disorders - borderline personality disorder - Surgical History Surgery Procedure, Year, and Place: Deer teeth Infectious Disease History: No Infectious Disease History: Denies: Hx Hepatitis, Hx Human Immunodeficiency Virus (HIV), History Other Infectious Disease, Traveled Outside the [place] in Last 30 Days - Family History Known Family History: Negative: Cardiac Disease, Hypertension, Diabetes - Social History Alcohol Use: None Alcohol Amount: binge drinking Hx Substance Use: No Substance Use Type: Reports: Marijuana Hx Tobacco Use: No Smoking Status (MU): Never Smoked Tobacco Have You Smoked in the Last Year: No Review of Systems Positive: Palpitations Positive: Other - L flank pain All Other Systems Reviewed And Are Negative: Yes Physical Exam - Summary Physical Exam Summary: VITAL SIGNS: Reviewed. GENERAL: Patient is a well-developed and nourished female who is lying comfortable in the stretcher. Patient is not in any acute respiratory distress. HEAD AND FACE: No signs of trauma. No ecchymosis, hematomas or skull depressions. No sinus tenderness. EYES: PERRLA, EOMI x 2, No injected conjunctiva, no nystagmus. EARS: Hearing grossly intact. Ear canals and tympanic membranes are within normal limits. MOUTH: Oropharynx within normal limits. NECK: Supple, trachea is midline, no adenopathy, no JVD, no carotid bruit, no c- spine tenderness, neck with full ROM. CHEST: Symmetric, no tenderness at palpation LUNGS: Clear to auscultation bilaterally. No wheezing or crackles. CVS: Tachycardic, S1 and S2 present, no murmurs or gallops appreciated. ABDOMEN: Soft, non-tender. No signs of distention. No rebound no guarding, and no masses palpated. Bowel sounds are normal. EXTREMITIES: FROM in all major joints, no edema, no cyanosis or clubbing. NEURO: Alert and oriented x 3. No acute neurological deficits. Speech is normal and follows commands. SKIN: Dry and warm PSYCH: Cooperative but compulsive. Somewhat anxious. Triage Information Reviewed: Yes Vital Signs On Initial Exam: Initial Vitals Temp Pulse Resp BP Pulse Ox 98.3 F 129 20 140/85 99 11/29/18 21:20 11/29/18 21:20 11/29/18 21:20 11/29/18 21:20 11/29/18 21:20 Vital Signs Reviewed: Yes Diagnostics - Vital Signs Vital Signs Temp Pulse Resp BP Pulse Ox 11/29/18 21:20 98.3 F 129 20 140/85 99 - Laboratory Result Diagrams: 11/29/18 22:10 11/29/18 22:10 Lab Statement: Any lab studies that have been ordered have been reviewed, and results considered in the medical decision making process. - EKG 2116 Cardiac Rate: Tachycardia - 103bpm EKG Rhythm: Sinus Tachycardia ST Segment: Normal Ectopy: None Disposition - Course Course Of Treatment: Pt is a 32 y/o F presenting to the ED with a chief complaint of heart palpitations. She states she woke up this morning, smoked some weed in preparation to see her dog, and then her heart felt weird and she started to worry. She also reports right flank pain. An EKG at 2115 shows sinus tachycardia at 130bpm, normal axis, normal interval, no ischemic changes. The pt will be signed out to Dr. Cronin on shift change pending MHE and disposition. - Diagnoses Provider Diagnoses: Adjustment disorder Discharge - Sign-Out/Discharge Documenting (check all that apply): Sign-Out Patient Signing out patient TO: Brendan Cronin Patient Received Moderate/Deep Sedation with Procedure: No - Discharge Plan Condition: Stable Disposition: HOME Referrals: Kell Kirby MD [Primary Care Provider] - - Billing Disposition and Condition Condition: STABLE Disposition: Home - Attestation Statements Document Initiated by Ismaelibe: Yes Documenting Scribe: Valerie Lakhani Provider For Whom Georgi is Documenting (Include Credential): Yary Johnson MD. Scribe Attestation: Valerie Bautista scribed for Yary Johnson MD. on 11/30/18 at 1821. Scribe Documentation Reviewed: Yes Provider Attestation: The documentation as recorded by the Valerie carroll accurately reflects the service I personally performed and the decisions made by Juventino collins MD. Status of Scribe Document: Viewed
[2018-11-29 22:17] LABS: ABS Basophils 0.1 10^3/ul (0-0.2); ABS Eosinophils 0 10^3/ul (0-0.6); ABS Lymphocytes 2.9 10^3/ul (1.0-4.8); ABS Monocytes 0.9 10^3/ul (0-0.8); ABS Neutrophils 5.5 10^3/ul (1.5-7.7); ABS Nucleated RBC 0 10^3/ul; Eosinophil % 0.3 %; Hematocrit 37 % (33-41); Hemoglobin 12.8 g/dL (12.0-16.0); Lymphocyte % 30.6 %; Mean Corpuscular HGB Conc 34 g/dL (31-36); Mean Corpuscular Hemoglobin 31 pg (27-31); Mean Corpuscular Volume 91 fL (80-97); Nucleated Red Blood Cells % 0; Platelet Count 287 10^3/uL (150-450); Red Blood Count 4.08 10^6 /uL (3.70-4.87); Red Cell Distribution Width 12 % (10.5-15); White Blood Count 9.4 10^3/uL (3.5-10.8)
[2018-11-29 22:28] LABS: Urine Appearance Clear; Urine Bilirubin Negative (Negative); Urine Blood Negative (Negative); Urine Color Colorless; Urine Glucose Negative (Negative); Urine Ketones Negative (Negative); Urine Nitrite Negative (Negative); Urine Protein Negative (Negative); Urine Urobilinogen Negative (Negative)
[2018-11-29 22:35] LABS: ALT 37 U/L (7-52); AST 32 U/L (13-39); Albumin 5.2 g/dL (3.2-5.2); Albumin/Globulin Ratio 2.2 (1-3); Alkaline Phosphatase 67 U/L (34-104); Anion Gap 8 mmol/L (2-11); BUN/Creatinine Ratio 15.8 (8-20); Blood Urea Nitrogen 12 mg/dL (6-24); CO2 Carbon Dioxide 28 mmol/L (22-32); Calcium 9.9 mg/dL (8.6-10.3); Chloride 98 mmol/L (101-111); EGFR African American 108.1 (>60); EGFR Non-African American 89.4 (>60); Globulin 2.4 g/dL (2-4); Glucose 114 mg/dL (70-100); Potassium 3.4 mmol/L (3.5-5.0); Sodium 134 mmol/L (135-145); Total Protein 7.6 g/dL (6.4-8.9)
[2018-11-29 22:43] LABS: HCG Pregnancy < 0.60 mIU/mL
[2018-11-29 22:44] LABS: Acetaminophen < 15 mcg/mL; Alcohol < 10 mg/dL (<10); Lithium 0.19 mmol/L (0.6-1.2); Salicylate < 2.50 mg/dL (<30)
[2018-11-29 22:50] LABS: Barbiturates Urine Screen None Detected (None Detect); Benzodiazepine Urine Screen None Detected (None Detect); Urine Cannabinoids Screen Presumptive Positive (None Detect)
[2018-11-29 22:58] LABS: TSH (Thyroid Stimulating Horm) 0.74 mcIU/mL (0.34-5.60)
[2018-11-29] MEDS ORDERED: Mouth Piece, Nicotine* 1 EACH CARTRIDGE INH ONE (23:00)
--- NOTE | 2018-11-30 08:15 | ED ---
Progress - Progress Note Progress Note: This pt was signed out by Dr. Johnson at shift change, pending disposition, awaiting mental health evaluation. Pt had a mental health evaluation and her case was reviewed by Dr. Brooks, psychiatrist. Dr. Brooks cleared the pt for discharge. Pt will be discharged home with outpatient follow up from [facility] on 12/03/18 with dx adjustment disorder. Course/Dx - Diagnoses Provider Diagnoses: Adjustment disorder Discharge - Sign-Out/Discharge Documenting (check all that apply): Patient Departure - Discharge home, Receiving Sign-Out Receiving patient FROM: Yary Johnson Patient Received Moderate/Deep Sedation with Procedure: No - Discharge Plan Condition: Stable Disposition: HOME Referrals: Kell Kirby MD [Primary Care Provider] - - Billing Disposition and Condition Condition: STABLE Disposition: Home - Attestation Statements Document Initiated by Ismaelibe: Yes Documenting Scribe: Meron Yarbrough Provider For Whom Scribe is Documenting (Include Credential): Brendan Cronin MD Scribe Attestation: Meron Bautista scribed for Brendan Cronin MD on 11/30/18 at 0926. Scribe Documentation Reviewed: Yes Provider Attestation: The documentation as recorded by the Meron carroll accurately reflects the service I personally performed and the decisions made by , Brendan Cronin MD Status of Scribe Document: Viewed
[2018-11-30 09:26] VITALS: BP 111/64
== END 2018-11-30 09:24 | disposition home or self-care (01) ==
LOC: ED 21:11
DX: F43.20 Adjustment disorder, unspecified (principal); R94.31 Abnormal electrocardiogram [ECG] [EKG]; R63.0 Anorexia; Z68.20 Body mass index [BMI] 20.0-20.9, adult; F32.9 Major depressive disorder, single episode, unspecified; Z91.5 Personal history of self-harm
CPT/HCPCS: 36415; 80053; 80178; 80307; 80320; 80329; 81003; 84443; 84702; 85025; 93005; 96372; 99284; G0480; J1630; J2060

== ENCOUNTER 2018-12-17 11:11 | Emergency (ER) | payer BC, OTHER ==
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
[2018-12-17 11:31] VITALS: BP 140/86
--- NOTE | 2018-12-17 12:04 | UC ---
Bite Injury/Animal HPI - HPI Summary HPI Summary: 33-year-old woman comes in with a chief complaint of dog bite. Patient got the dog 2 weeks ago from the [facility]. The dog is up-to-date on its rabies immunizations. She reports that she gets the bites when she is playing with the dog. Multiple scratches on both forearms and on the lower legs. On examination there is only a skin break on the left forearm. It is superficial but there is a scab on it. There is no erythema no streaking. Patient reports that she had her last tetanus 3 years ago and that she is allergic to the tetanus immunization. - History of Current Complaint Chief Complaint: López Stated Complaint: DOG BITE Time Seen by Provider: 12/17/18 11:13 Hx Last Menstrual Period: 12/14/18 Pain Intensity: 5 - Allergies/Home Medications Allergies/Adverse Reactions: Allergies Allergy/AdvReac Type Severity Reaction Status Date / Time No Known Allergies Allergy Verified 12/17/18 11:32 PMH/Surg Hx/FS Hx/Imm Hx Previously Healthy: Yes Psychological History: Anxiety, Depression, Bipolar Disorder, Post Traumatic Stress Disorder Other Psychological History: BORDERLINE PERSONALITY D/O - Surgical History Surgical History: Yes Surgery Procedure, Year, and Place: [place] teeth - Family History Known Family History: Negative: Cardiac Disease, Hypertension, Diabetes - Social History Alcohol Use: None Alcohol Amount: binge drinking Substance Use Type: Marijuana Smoking Status (MU): Never Smoked Tobacco Have You Smoked in the Last Year: No - Immunization History Most Recent Tetanus Shot: 3 yeaars ago Vaccination Up to Date: Yes Review of Systems All Other Systems Reviewed And Are Negative: Yes Constitutional: Positive: Negative Skin: Positive: Other - SEE HPI Eyes: Positive: Negative ENT: Positive: Negative Respiratory: Positive: Negative Cardiovascular: Positive: Negative Gastrointestinal: Positive: Negative Motor: Positive: Negative Neurovascular: Positive: Negative Musculoskeletal: Positive: Negative Neurological: Positive: Negative Psychological: Positive: Other - BORDERLINE PERSONALITY D/O,PTSD,DEPRESSION, ANXIETY,BIPOLAR Is Patient Immunocompromised?: No Physical Exam Triage Information Reviewed: Yes Appearance: Well-Appearing, No Pain Distress, Well-Nourished Vital Signs: Initial Vital Signs Temp 99.7 F 12/17/18 11:24 Pulse 97 12/17/18 11:24 Resp 20 12/17/18 11:24 BP 140/86 12/17/18 11:24 Pulse Ox 98 12/17/18 11:24 Vital Signs Reviewed: Yes Eye Exam: Normal Eyes: Positive: Conjunctiva Clear Neck: Positive: Supple Respiratory: Positive: No respiratory distress Musculoskeletal Exam: Normal Musculoskeletal: Positive: Strength Intact, ROM Intact Neurological: Positive: Alert, Muscle Tone Normal Psychological: Positive: Age Appropriate Behavior Skin: Positive: Other - Patient has multiple superficial abrasions on both of her forearms and her right calf which she showed me. There is only 1 that appears to have broken the skin on the left forearm and it's 1 cm long. It has a scab over at this time. There is no surrounding erythema and no streaking. Bite Injury Course/Dx - Course Course Of Treatment: On examination patient only had one area that had obviously broken the skin. We 'll treat with Augmentin. Dog bite form was filled out and sent it [facility]. Patient had paperwork documenting the dog is up-to- date with his rabies immunization. Patient's to get reevaluated if she has any worsening of conditions are questions or concerns. - Differential Dx/Diagnosis Provider Diagnosis: Dog bite of left arm Discharge - Sign-Out/Discharge Documenting (check all that apply): Patient Departure All imaging exams completed and their final reports reviewed: No Studies - Discharge Plan Condition: Stable Disposition: HOME Prescriptions: Amoxicillin/Clavulanate TAB* [Augmentin TAB 875*] 875 mg PO BID #20 tab Patient Education Materials: Animal Bite (ED) Referrals: Kell Kirby MD [Primary Care Provider] - Additional Instructions: FOLLOW UP WITH YOUR DOCTOR IF NOT COMPLETELY IMPROVED. GET REEVALUATED SOONER IF YOUR CONDITION WORSENS OR ANY QUESTIONS OR CONCERNS. [facility], . - Billing Disposition and Condition Condition: STABLE Disposition: Home
== END 2018-12-17 12:05 | disposition home or self-care (01) ==
LOC: UCEAST 11:11
DX: S50.812A Abrasion of left forearm, initial encounter (principal); S51.812A Laceration without foreign body of left forearm, initial encounter; S50.811A Abrasion of right forearm, initial encounter; S80.811A Abrasion, right lower leg, initial encounter; W54.0XXA Bitten by dog, initial encounter; Y92.9 Unspecified place or not applicable; F41.9 Anxiety disorder, unspecified; F31.9 Bipolar disorder, unspecified; F60.3 Borderline personality disorder
CPT/HCPCS: 99212; G0463

== ENCOUNTER 2020-05-17 14:01 | Inpatient (IN) ==
[2020-05-17] MEDS ORDERED: Lactated Ringers 1000 ml BAG 1,000 ML IV ONE (15:08)
[2020-05-17] MEDS ORDERED: Penicillin G Potassium IV 5,000,000 UNITS in NS 0.9% 100 ml BAG 100 ML IVPB ONE (15:30)
[2020-05-17] MEDS ORDERED: Lactated Ringers 1000 ml BAG 1,000 ML IV SCH (16:00)
[2020-05-18 06:49] LABS: ABS Basophils 0.1 10^3/ul (0-0.2); ABS Eosinophils 0.1 10^3/ul (0-0.6); ABS Lymphocytes 2.4 10^3/ul (1.0-4.8); ABS Monocytes 1.2 10^3/ul (0-0.8); ABS Neutrophils 8.5 10^3/ul (1.5-7.7); Eosinophil % 0.8 %; Hematocrit 35 % (35-47); Hemoglobin 11.9 g/dL (12.0-16.0); Lymphocyte % 19.8 %; Mean Corpuscular HGB Conc 34 g/dL (31-36); Mean Corpuscular Hemoglobin 28 pg (27-31); Mean Corpuscular Volume 82 fL (80-97); Mean Platelet Volume 11.4 fL (7.4-10.4); Platelet Count 166 10^3/uL (150-450); Red Blood Count 4.24 10^6 /uL (3.70-4.87); Red Cell Distribution Width 14 % (10-15); White Blood Count 12.3 10^3/uL (3.5-10.8)
[2020-05-18 07:12] LABS: Urine Benzodiazepine Screen None Detected (None Detect); Urine Cannabinoids Screen None Detected (None Detect); Urine Opiates Screen None Detected (None Detect)
[2020-05-18] MEDS ORDERED: Oxytocin in LR 20 UNITS/1,000 ML BAG IVPB SCH ×2 (08:00→15:00)
[2020-05-18] MEDS: Penicillin G Potassium IV 3,000,000 UNITS in NS 0.9% 100 ml BAG 100 ML IVPB SCH (09:38)
[2020-05-18] MEDS ORDERED: Bupivacaine 0.5% SDV PF 30ML VIAL ONE (11:21)
[2020-05-18] MEDS ORDERED: fentaNYL 100 mcg/2 ml 50 MCG/ML VIAL ONE ×3 (11:21→12:02)
[2020-05-18] MEDS ORDERED: ceFOXitin 2 GM IVPREMIX 2 GM/50 ML BAG ONE (11:57)
[2020-05-18] MEDS ORDERED: Sodium Citrate/Citric Acid LIQ 15 ML UDC ONE (11:57)
[2020-05-18] MEDS ORDERED: Terbutaline INJ 1 MG/ML 1 ml VIAL ONE (11:57)
[2020-05-18] MEDS ORDERED: Ondansetron 4 mg VIAL 2 MG/ML 2 ml VIAL ONE (11:59)
[2020-05-18] MEDS ORDERED: Dexamethasone IV 4 MG/ML VIAL 1 ml VIAL ONE (11:59)
[2020-05-18] MEDS ORDERED: EPHEDrine (Pressors) 50 MG/ML VIAL ONE (11:59)
[2020-05-18] MEDS ORDERED: Metoclopramide 5 MG/ML VIAL (10 mg) ONE (11:59)
[2020-05-18] MEDS ORDERED: Phenylephrine 40 mcg/mL 10mL (400mcg) SYRINGE ONE ×2 (12:00→12:44)
[2020-05-18] MEDS ORDERED: Sodium Chloride 0.9% 10 ML ONE (12:00)
[2020-05-18] MEDS ORDERED: Morphine PF AMP (0.5MG/ML) 5 MG/10 ML AMP ONE (12:02)
[2020-05-18] MEDS ORDERED: Oxytocin 10 UNITS/ML 1 ML VIAL ONE (12:06)
[2020-05-18] MEDS ORDERED: Terbutaline INJ 1 MG/ML 1 ml VIAL SUBCUT ONE (12:16)
[2020-05-18] MEDS ORDERED: ceFOXitin 2 GM IVPREMIX 2 GM/50 ML BAG IVPB ONE (12:20)
[2020-05-18] MEDS ORDERED: Sodium Citrate/Citric Acid LIQ 15 ML UDC PO ONE (12:20)
[2020-05-18] MEDS ORDERED: Naloxone 4 mg VIAL (10 ml) 2 MG in NS 0.9% 250 ml 250 ML IV PRN (13:22)
[2020-05-18] MEDS ORDERED: Naloxone 0.4 mg VIAL 0.4 mg/ml 1 ml VIAL IV PRN (13:22)
[2020-05-18] MEDS ORDERED: Ondansetron 4 mg VIAL 2 MG/ML 2 ml VIAL IV PRN (13:22)
[2020-05-18] MEDS ORDERED: diPHENhydraMINE IV 50 MG/ML 1 ml VIAL (BENADRYL) IV PRN (13:22)
[2020-05-18] MEDS ORDERED: Witch Hazel PAD JAR TOPICAL PRN (14:08)
[2020-05-18] MEDS ORDERED: Dibucaine 1% OINT 28.35 GM TUBE PR PRN (14:08)
[2020-05-18] MEDS ORDERED: Glycerin ADULT 2.4 gm SUPP PR PRN (14:08)
[2020-05-19 08:15] LABS: Hematocrit 26 % (35-47); Hemoglobin 8.8 g/dL (12.0-16.0); Mean Corpuscular HGB Conc 34 g/dL (31-36); Mean Corpuscular Hemoglobin 28 pg (27-31); Mean Corpuscular Volume 83 fL (80-97); Mean Platelet Volume 11.4 fL (7.4-10.4); Platelet Count 148 10^3/uL (150-450); Red Blood Count 3.12 10^6 /uL (3.70-4.87); Red Cell Distribution Width 14 % (10-15); White Blood Count 20.5 10^3/uL (3.5-10.8)
[2020-05-19 08:39] LABS: ABS Basophils 0.2 10^3/ul (0-0.2); ABS Eosinophils 0.1 10^3/ul (0-0.6); ABS Lymphocytes 2.4 10^3/ul (1.0-4.8); ABS Neutrophils 15.8 10^3/ul (1.5-7.7); Eosinophil % 0.6 %; Lymphocyte % 11.8 %
[2020-05-20] MEDS: Penicillin G Potassium IV 3,000,000 UNITS in NS 0.9% 100 ml BAG 100 ML IVPB SCH (09:21)
[2020-05-21 07:53] VITALS: BP 124/86
[2020-05-21] MEDS ORDERED: Influenza VAC *QUAD* 2020-21* 0.5 ML SYRINGE IM ONE (11:00)
== END 2020-05-21 13:19 | disposition home or self-care (01) | DRG 540 ==
LOC: MCHOBOUT 14:01 → MCHOB 15:00
PROVIDERS: ADMIT Obstetrics & Gynecology; ATTEND Obstetrics & Gynecology